=== PATIENT | male | born 2000 | race Two or more races ===

== ENCOUNTER 2025-09-13 17:09 | Emergency (ER) | payer OTHER ==
[~2025-09-13] VITALS: Ht 175.3 cm; Wt 127.0 kg
[2025-09-13 17:17] VITALS: O2SAT 97
[2025-09-13 17:25] VITALS: TEMP 36.7; O2SAT 98
[2025-09-13 18:52] VITALS: BP 134/76; PULSE 88; RESP 16
[2025-09-13] MEDS: IBUPROFEN 600MG TABLET PO ONE (18:52)
[2025-09-13] MEDS: LIDOCAINE 5% PATCH TOP SCH (18:52)
[2025-09-13] MEDS ORDERED: LIDO-53 TP (19:16)
[2025-09-13] MEDS ORDERED: IBUP-1455 MT (19:16)
== END 2025-09-13 19:48 | disposition home or self-care (01) ==
LOC: ER 17:09
DX: M54.50 Low back pain, unspecified (principal); M79.602 Pain in left arm; M25.561 Pain in right knee
CPT/HCPCS: 99284; 73030; 73080; 73110; 73562; A6449